=== PATIENT | female | born 1985 | race African-American/Black ===

== ENCOUNTER 2018-12-27 14:57 | Emergency (ER) | payer OTHER ==
[2018-12-27 15:07] VITALS: BP 120/69
[2018-12-27 15:27] LABS: Influenza A Molecular NEGATIVE (Negative); Influenza B Molecular NEGATIVE (Negative)
--- NOTE | 2018-12-27 15:45 | UC ---
FLU HPI - HPI Summary HPI Summary: 33 y/o female presents to the urgent care c/o nasal congestion, w/ clear discharge, body aches, fatigue, mild sore throat since this morning. Pt is concerned with the flu. Pt also c/o RT pinky toe pain s/p dropping a weight at the [employer] in her toe about 2 weeks ago. Pain is 4/10 specially when she walks or rubs her toe against something. Pt has not taking anything to alleviate symptoms. Pt denies fever, calf pain, SOB, chest pain, numbness or tingling sensation over her toe, abdominal pain, TORRES, N/V/D. LMP:12/13/2018 and OCP. - History of Current Complaint Chief Complaint: UCGeneralIllness Stated Complaint: FOOT INJURY,SORE THROAT Time Seen by Provider: 12/27/18 15:11 Hx Obtained From: Patient Hx Last Menstrual Period: [id number] ?: No - pt declines test Onset/Duration: Gradual Onset, Lasting Weeks - 2 weeks of RT pinky toe injury, Still Present, Worse Since - today w/ flu like symptoms Severity Currently: Mild Severity Initially: Mild Pain Intensity: 4 Pain Scale Used: 0-10 Numeric Associated Signs & Symptoms: Positive: Myalgia, Sore Throat - mild, Nasal Congestion - clear. Negative: Cough, Headache - Risk Factors Influenza Risk Factors: Negative - Allergy/Home Medications Allergies/Adverse Reactions: Allergies Allergy/AdvReac Type Severity Reaction Status Date / Time No Known Allergies Allergy Verified 12/27/18 15:07 Home Medications: Home Medications Levonorgestrel (Iud) [Mirena IUD] 20 mcg IU ONCE 12/27/18 [History Confirmed ] PMH/Surg Hx/FS Hx/Imm Hx Previously Healthy: Yes - Pt denies PMHX - Surgical History Surgical History: Yes Surgery Procedure, Year, and Place: biopsy of right breast - Family History Known Family History: Positive: Hypertension, Diabetes - Social History Occupation: Employed Full-time Lives: With Family Alcohol Use: Occasionally Substance Use Type: None Smoking Status (MU): Never Smoked Tobacco Have You Smoked in the Last Year: No Review of Systems All Other Systems Reviewed And Are Negative: Yes Constitutional: Positive: Chills, Fatigue, Other - body aches. Negative: Fever Skin: Positive: Negative Eyes: Positive: Negative ENT: Positive: Sore Throat - mild, Nasal Discharge - clear, Sinus Congestion Respiratory: Positive: Negative Cardiovascular: Positive: Negative Gastrointestinal: Positive: Negative Genitourinary: Positive: Negative Motor: Positive: Negative Neurovascular: Positive: Negative Musculoskeletal: Positive: Decreased ROM - RT pinky toe, Myalgia, Other: - Rt pinky toe s/p injury at the [facility] Neurological: Positive: Negative Psychological: Positive: Negative Is Patient Immunocompromised?: No Physical Exam - Summary Physical Exam Summary: VITAL SIGNS: Reviewed. GENERAL: Patient is a well developed and nourished female who is sitting comfortable in the examining table. Patient is not in any acute respiratory distress. HEAD AND FACE: No signs of trauma. No ecchymosis, hematomas or skull depressions. No sinus tenderness. EYES: PERRLA, EOMI x 2, No injected conjunctiva, no nystagmus. No photophobia. EARS: Hearing grossly intact. Ear canals and tympanic membranes are within normal limits. Nose: edematous and erythematous nasal mucosa w/ clear nasal discharge. MOUTH: Positive no erythema, no tonsillar enlargement. Uvula in midline. NECK: Supple, trachea is midline, Positive anterior cervical lymphadenopathy, no JVD, no carotid bruit, no c-spine tenderness, neck with full ROM. No meningeal signs, no Kernig's or brudzinskis signs. CHEST: Symmetric, no tenderness at palpation LUNGS: Clear to auscultation bilaterally. No wheezing or crackles. CVS: Regular rate and rhythm, S1 and S2 present, no murmurs or gallops appreciated. ABDOMEN: Soft, non-tender. No signs of distention. No rebound no guarding, and no masses palpated. Bowel sounds are normal. Musculoskeletal: Positive: Strength Intact, ROM Intact, No Edema,Rt Foot/Toes: Pt is able to bear weight but ambulate w/o limping. No surface trauma, ecchymosis, erythema, lesions, ulcers or break in skin integrity. The R foot is without obvious asymmetry or deformity when compared to the L foot. No bony step-off, No tenderness to palpation over toes except point tenderness over the lateral side of the Rt 5th toe w/o any swelling or erythema, decrease ROM due to pain. no tenderness of mid foot or hindfoot, Decrease plantar/dorsiflexion , inversion/eversion due to pain. Distal motor and neurovascular status are intact. EXTREMITIES: FROM in all major joints, no edema, no cyanosis or clubbing. NEURO: Alert and oriented x 3. No acute neurological deficits. Speech is normal and follows commands. SKIN: Dry and warm Triage Information Reviewed: Yes Vital Signs: Initial Vital Signs Temp 100.5 F 12/27/18 15:02 Pulse 120 12/27/18 15:02 Resp 18 12/27/18 15:02 BP 120/69 12/27/18 15:02 Pulse Ox 99 12/27/18 15:02 Flu Course/Dx - Course Course Of Treatment: 33 y/o female presents to the urgent care c/o nasal congestion, w/ clear discharge, body aches, fatigue, mild sore throat since this morning. Pt is concerned with the flu. Pt also c/o RT pinky toe pain s/p dropping a weight at the [employer] in her toe about 2 weeks ago. Pain is 4/10 specially when she walks or rubs her toe against something. Pt has not taking anything to alleviate symptoms. Pt denies fever, calf pain, SOB, chest pain, numbness or tingling sensation over her toe, abdominal pain, TORRES, N/V/D. LMP:12/13 and OCP. Pt declined test. Hx obtained. Pt is w/ low grade fever 100.5 and HR: 120bpm and w/ viral syndrome and derease ROM of RT 5th on examination. Rapid Influenza A&B: negative. Pt given at the clinic Ibuprofen PO to alleviate symptoms. Pt tolerated well medications and Pt felt better. and RT 5th toe X-ray ordered, Impression:Nondisplaced transvere fracture of the middle phalanx of the Rt 5th toe as per radiologist. Pt's toe immobilized by body tapping with adjacent toe with maik-bandage and given a post-op shoe to avoid flexion. Advised RICE, and Rx Ibuprofen PO for pain, Advised to f/u with Orthopedic DR Samaniego referral for further evaluation and treatment on toe fractuere. Pt w/ exposure to Influenza. Pt will be Tx w/ Tamiflu PO as directed below and Also advised Increase hydration and rest and encourage hand washing and if not improvement of her symptoms tp f/u w/ her PCP in 2 days for further management. D/C instructions explained. Pt understood and agreed with D/ C instructions - Differential Dx/Diagnosis Differential Diagnosis/HQI/PQRI: Bronchitis, Influenza, Upper Respiratory Infection, Other - tendonitis, fracture Provider Diagnosis: Viral syndrome, Fracture of fifth toe, right, closed Discharge - Sign-Out/Discharge Documenting (check all that apply): Patient Departure - D/C home All imaging exams completed and their final reports reviewed: Yes - Discharge Plan Condition: Stable Disposition: HOME Prescriptions: Ibuprofen TAB* [Motrin TAB* 600 MG] 600 mg PO Q6H PRN #30 tab PRN Reason: Pain Oseltamivir CAP* [Tamiflu CAP*] 75 mg PO BID #10 cap Patient Education Materials: Toe Fracture (ED), Viral Syndrome (ED) Forms: *Work Release Referrals: Ness Samaniego MD [Medical Doctor] - 2 Days Gracy Adan MD [Primary Care Provider] - 3 Days Additional Instructions: 1- Please take the full course of the antiviral to avoid resistance. Encourage hand washing and wear a mask to avoid spreading. 2-Please continue taking Ibuprofen PO q6-8hrs prn as instructed after meals to alleviate fever, and sore throat. Increase fluid intake, eat well, rest and avoid strenuous exercise 3-If symptoms do not improve or worsen please return to the urgent care or f/u with your PCP in 2 days for further evaluation and treatment. 4-Please apply ice, keep your toe immobilized with the Maik bandage and avoid flexion with the post-op shoe. elevated your foot, Avoid strenuous exercise or standing for long periods of time. 5- Please f/u with Orthopedic Dr Samaniego in 2-3 days for further evaluation and treatment on your toe fracture. - Billing Disposition and Condition Condition: STABLE Disposition: Home - Attestation Statements Provider Attestation: I was available for consult. This patient was seen by the JACI. The patient was not presented to, seen by, or examined by me. -Star
[2018-12-27] MEDS ORDERED: Ibuprofen TAB* 400 MG PO ONE (15:48)
== END 2018-12-27 16:40 | disposition home or self-care (01) ==
LOC: UCEAST 14:57
DX: J02.9 Acute pharyngitis, unspecified (principal); R53.83 Other fatigue; R09.81 Nasal congestion; M79.674 Pain in right toe(s)
CPT/HCPCS: 87651; 99213; A9270-GY; G0463